=== PATIENT | female | born 1980 | race Hispanic/Latino ===

== ENCOUNTER 2020-03-28 23:09 | Emergency (ER) | payer BC ==
[2020-03-28] MEDS ORDERED: IBUPROFEN 600 MG TABLET ONE (23:43)
[2020-03-28] MEDS ORDERED: ACETAMINOPHEN EXTRA STRENGTH 500 MG TABLET ONE (23:43)
== END 2020-03-29 00:39 | disposition home or self-care (01) ==
LOC: EDH 23:09
DX: U07.1 COVID-19 (principal); B34.9 Viral infection, unspecified
CPT/HCPCS: 36415; 87804 ×2; 87880; 99283; U0003